=== PATIENT | male | born 1950 | race Caucasian/White ===

== ENCOUNTER 2023-04-27 05:36 | Observation (INO) ==
[2023-04-27] MEDS ORDERED: Tranexamic Acid 1 GM/100ML BAG 2,000 MG/200 ML BAG IV ONE (05:56)
[2023-04-27] MEDS ORDERED: ceFAZolin 2 GM PREMIX 2 GM/50 ML BAG ONE (05:56)
[2023-04-27] MEDS ORDERED: Famotidine IV 10 MG/ML 2 ml VIAL (20 mg) ONE (05:57)
[2023-04-27] MEDS: Buffered Lidocaine 1% SYRIN 1 ml INTRADERM ONE (06:13)
[2023-04-27] MEDS: Lactated Ringers 1000 ml BAG 1,000 ML IV SCH ×2 (06:13→12:08)
[2023-04-27] MEDS: Famotidine IV 10 MG/ML 2 ml VIAL (20 mg) IV ONE (06:13)
[2023-04-27 06:23] LABS: Rapid COVID-19 Molecular Undetected (Undetected)
[2023-04-27] MEDS ORDERED: Phenylephrine IV 10 MG/ML 1 ml VIAL ONE (06:57)
[2023-04-27] MEDS ORDERED: Propofol 10 MG/ML 20 ML BTL ONE (07:02)
[2023-04-27] MEDS ORDERED: KETAMINE HCL 10 MG/ML 20 ml VIAL (200 MG) ONE (07:04)
[2023-04-27] MEDS ORDERED: Lidocaine 2% PF 5 ML VIAL ONE (07:04)
[2023-04-27] MEDS ORDERED: ROPIVACAINE 5 MG/ML 30 ML BTL (0.5%) ONE ×2 (07:15→07:48)
[2023-04-27] MEDS ORDERED: Midazolam 2 mg/2 ml VIAL 1 mg/ml 2 ml VIAL (2 mg) ONE (07:15)
[2023-04-27] MEDS ORDERED: fentaNYL 100 mcg/2 ml 50 MCG/ML VIAL ONE (07:15)
[2023-04-27] MEDS ORDERED: Bupivacaine-MPF SPINAL 7.5 MG/ML - 2ML AMP ONE ×2 (07:22)
[2023-04-27] MEDS ORDERED: Phenylephrine 40 mcg/mL 10mL (400mcg) SYRINGE ONE (07:58)
[2023-04-27] MEDS ORDERED: Glycopyrrolate IV 0.2 MG/ML 1 ML VIAL ONE (08:26)
[2023-04-27] MEDS ORDERED: Naloxone 0.4 mg VIAL 0.4 mg/ml 1 ml VIAL IV PRN (08:35)
[2023-04-27] MEDS ORDERED: fentaNYL 100 mcg/2 ml 50 MCG/ML VIAL IV PRN (08:35)
[2023-04-27] MEDS ORDERED: HYDROmorphone 1 MG/1 ML SYRINGE IV PRN (08:35)
[2023-04-27] MEDS ORDERED: Ondansetron 4 mg VIAL 2 MG/ML 2 ml VIAL IV PRN ×2 (08:35→10:10)
[2023-04-27] MEDS ORDERED: Ondansetron 4 mg VIAL 2 MG/ML 2 ml VIAL ONE (08:46)
[2023-04-27] MEDS ORDERED: Acetaminophen IV 1 GM/100ML 1,000 MG/100 ML BAG IV ONE (08:46)
[2023-04-27] MEDS ORDERED: Magnesium Hydroxide LIQ 30 ML UDC PO PRN (10:10)
[2023-04-27] MEDS ORDERED: Morphine 2 MG/ML SYRINGE IV PRN (10:10)
[2023-04-27] MEDS ORDERED: Lactulose 30 ml UDC PO PRN (10:10)
[2023-04-27] MEDS ORDERED: Ondansetron ODT 4 mg TAB 4 MG TAB PO PRN (10:10)
[2023-04-27] MEDS: ceFAZolin 1 GM ADVAN 1 GM in NS 0.9% 50 ML 50 ML IVPB SCH (15:51)
[2023-04-27 18:43] VITALS: BP 139/67
[2023-04-27] MEDS ORDERED: Magnesium Hydroxide LIQ 30 ML UDC PO SCH (21:00)
[2023-04-28] MEDS ORDERED: Vitamin THERAPEUTIC TAB PO SCH (09:00)
== END 2023-04-27 19:00 | disposition home or self-care (01) ==
LOC: SSU 05:36 → SDS 05:36 → EDSTATUS 07:30
PROVIDERS: ADMIT Orthopaedic Surgery Adult Reconstructive Orthopaedic Surgery; ATTEND Orthopaedic Surgery Adult Reconstructive Orthopaedic Surgery